=== PATIENT | male | born 1965 | race Caucasian/White ===

== ENCOUNTER 2018-12-01 06:01 | Inpatient (IN) ==
--- NOTE | 2018-10-23 09:44 | PAT Medication Instructions ---
Medication Instructions Date of Service October 23, 2018 Home Medications cholecalciferol (vitamin D3) 2,000 unit PO DAILY diltiazem HCl [Cardizem CD] 300 mg PO QAM levothyroxine 100 mcg PO QAM warfarin 6 mg PO QPM ASK your prescriber and surgeon warfarin 6 mg PO QPM DO NOT take the morning of surgery cholecalciferol (vitamin D3) 2,000 unit PO DAILY Take morning of surgery With a small sip of water, OTHERWISE NOTHING TO EAT OR DRINK AFTER MIDNIGHT: diltiazem HCl [Cardizem CD] 300 mg PO QAM levothyroxine 100 mcg PO QAM Other Notes If you have any questions please call us at [phone] or [phone] or [phone] or [phone]
--- NOTE | 2018-10-23 09:59 | History & Physical Report ---
Date of Service October 23, 2018 History of Present Illness Primary Care Provider: NO PCP Allergies Allergy/AdvReac Type Severity Reaction Status Date / Time Tetanus Vaccines and Toxoid Allergy Unknown PT UNSURE, Verified 10/12/18 09:44 REACTION WAS A CHILD erythromycin base AdvReac Unknown Diarrhea, Verified 10/23/18 09:45 sweating Penicillins AdvReac Unknown Diarrhea Verified 10/12/18 09:44 ZPACK Allergy Unknown Diarrhea, Uncoded 10/23/18 09:45 sweating Home Medications Home Medications Medication Instructions Recorded Confirmed Type cholecalciferol (vitamin D3) 2,000 unit PO DAILY 10/12/18 10/12/18 History [Vitamin D3] diltiazem HCl [Cardizem CD] 300 mg PO QAM 10/12/18 10/12/18 History levothyroxine 100 mcg PO QAM 10/12/18 10/12/18 History warfarin 6 mg PO QPM 10/12/18 10/12/18 History Past Med/Surg History Medical History Chronic back pain History of DVT (deep vein thrombosis) X4 - MOST RECENT 2013 History of anesthesia reaction WHEN STARTS GOING UNDER, THINKS BEING ATTACKED...GETS VIOLENT History of kidney stones History of melanoma History of neurologic disorder "IDIOPATHIC PSEUDOTUMOR OF THE BRAIN" - NO PROBLEMS WITH SINCE 2008 History of sepsis S/P BACK SURGERY - [facility] Hypertension Sleep apnea COULDN'T TOLERATE CPAP Thyroid disease "SLOW" Surgical History History of arthroscopy of right knee History of back surgery L4 - "TOOK DISC OUT AND PUT ONE IN" History of ear surgery LEFT X 2 History of hand surgery L WRIST History of laparoscopic adjustable gastric banding History of melanoma excision History of right knee surgery "MODIFIED WALTER" Family History Father No problems noted. Other Family history of cancer in father Social History Preferred Language: Icelandic Communication Ability: Effective Optical Effects Line Up Person Required: No Beliefs That Will Affect Care: Yazidi Current Living Situation: Spouse Other Information That Helps Us Care for You: No Feels Safe at Home: Yes Smoking Status: Never smoker Hx Alcohol Use: No Hx Substance Use: No
--- NOTE | 2018-10-23 11:53 | Anesthesiology Consultation ---
Date of Service October 23, 2018 Assessment & Plan (1) Encounter for pre-operative examination: - PCP: 11/10/18: "at low risk for bert-operative complications and has no contraindication to surgery." - Hx idiopathic intracranial hypertension (noted per patient/PCP note). Prior issues related to this were severe migraines/vertigo which has not been an issue in 10+ years s/p 150# weight loss s/p lap band. Has not seen neurology in several years. Patient states he had lumbar surgery in 2013 at [facility] without issue. Patient was advised anesthesia recommendation to see neurology prior to surgery given hx idiopathic intracranial hypertension to ensure whether or not spinal anesthesia okay from their perspective. Patient refused further neuro evaluation prior to surgery. Discussed with Dr. Cruz/Dr. Nazario. He wishes to proceed with surgery as scheduled with understanding that surgery may be done under [place] depending on AM DOS anesthesiologist evaluation/decision. - Check coags AM DOS (warfarin instructions per surgeon/prescriber). Chart Review Chart Review: Acceptable Risk for Surgery and Patient seen in Pre Admission Testing Teaching & Discussion Pre-Anesthesia Teaching/Discussion Notes: Instructed NPO after midnight before surgery,except medications with 15 cc of water. Medication instructions provided according to the PAT guidelines. History Surgery Operation Date: 12/01/18 08:35 Proposed Procedures p Right Total Knee Arthroplasty - Sam Lopez DO Height/Weight Height: 5 ft 7 in Weight: 125.6 kg Allergies Allergy/AdvReac Type Severity Reaction Status Date / Time Tetanus Vaccines and Toxoid Allergy Unknown PT UNSURE, Verified 10/12/18 09:44 REACTION WAS A CHILD erythromycin base AdvReac Unknown Diarrhea, Verified 10/23/18 09:45 sweating Penicillins AdvReac Unknown Diarrhea Verified 10/12/18 09:44 ZPACK Allergy Unknown Diarrhea, Uncoded 10/23/18 09:45 sweating Medications Home Medications Medication Instructions Recorded Confirmed Last Taken cholecalciferol (vitamin D3) 2,000 unit PO DAILY 10/12/18 10/12/18 Unknown [Vitamin D3] diltiazem HCl [Cardizem CD] 300 mg PO QAM 10/12/18 10/12/18 10/12/18 levothyroxine 100 mcg PO QAM 10/12/18 10/12/18 10/12/18 warfarin 6 mg PO QPM 10/12/18 10/12/18 10/11/18 Past Medical History Medical History Chronic back pain History of DVT (deep vein thrombosis) X4 - MOST RECENT 2013; ON WARFARIN History of kidney stones History of melanoma S/P EXCISION Hypertension Hypothyroidism Idiopathic intracranial hypertension ASYMPTOMATIC SINCE 2008 S/P WEIGHT LOSS Morbid obesity Sleep apnea NO DEVICE; "COULD NOT TOLERATE" CPAP Past Family History Family History Father No problems noted. Other Family history of cancer in father Past Surgical History Surgical History History of arthroscopy of right knee History of back surgery LUMBAR History of ear surgery LEFT X2 History of hand surgery LEFT WRIST History of laparoscopic adjustable gastric banding 2007 S/P 150# WEIGHT LOSS History of melanoma excision History of right knee surgery MODIFIED KRISTIAN PROCEDURE Past Anesthesia History No Family Hx of Anesthesia Complications and Other Hx post-op sepsis s/p lumbar surgery (2013). Violent/emotional with anesthesia initiation per patient* History of PONV No Motion Sickness Screening History of Motion Sickness: No Social History Smoking Status: Never smoker Do You Dip or Chew Tobacco: No Hx Alcohol Use: No Hx Substance Use: No substance use type: does not use Exercise / Class Metabolic Activity II 4-5 Yardwork/Stairs/Walk up hill Review of Systems Patient denies chest pain, shortness of breath, dyspnea on exertion, cough, wheezing, palpitations. Physical Exam Vital Signs VITALS BP 137/91 P 76 TEMP 98.2 SP02 95%RA RESP 18 PHYSICAL Full neck and c-spine range of motion. Full TMJ range of motion. TMD 3 finger breaths Mallampati Score 1 Dentition: upper front mild chipped teeth Lungs: clear throughout to auscultation Cardiac: regular rate and rhythm, no murmurs noted Spine: normal Carotid arteries: negative bruit Extremities: no edema Trimmed espana Testing Electrocardiogram Date: 10/23/18 NSR at 70bpm. Rightward axis. Chest X-Ray Date: 10/23/18 Findings: + NAD Evidence for prior gastric lap band. Laboratory Results 10/23/18 12:21 10/23/18 12:21 Blood Type A Negative 04/05/19 12:21 Antibody Screen NEGATIVE 10/23/18 12:21 PT 25.2 Seconds (9.0-12.0) H 10/23/18 12:21 INR 2.6 (0.9-1.1) H 10/23/18 12:21 APTT 39.1 Seconds (21.0-31.0) H 10/23/18 12:21 Hemoglobin A1c 5.7 % (4.5-5.6) H 10/23/18 12:21 Urine Color Yellow 10/23/18 12:21 Urine Appearance Clear (Clear) 10/23/18 12:21 Urine pH 6.0 (4.5-7.5) 10/23/18 12:21 Ur Specific [place] 1.014 (1.000-1.030) 10/23/18 12:21 Urine Protein Negative (Negative) 10/23/18 12:21 Urine Glucose (UA) Negative (Negative) 10/23/18 12:21 Urine Ketones Negative (Negative) 10/23/18 12:21 Urine Nitrite Negative (Negative) 10/23/18 12:21 Ur Leukocyte Esterase Negative (Negative) 10/23/18 12:21 Urine WBC (Auto) 0 /hpf (0-5) 10/23/18 12:21 Urine RBC (Auto) 0-4 /hpf (0-4) 10/23/18 12:21 U Hyaline Cast (Auto) 0 /lpf (0-5) 10/23/18 12:21 U Epithel Cells (Auto) 0-5 /lpf (0-5) 10/23/18 12:21 Urine Bacteria (Auto) Negative (Negative) 10/23/18 12:21 10/23/18 12:21 Urine Culture - Final Urine,Clean Catch No growth - less than 1,000 colonies/mL.
--- NOTE | 2018-10-23 13:09 | XRay Report ---
XR chest Pre-admission PA/Lat HISTORY: Preop. COMPARISON: None. FINDINGS: The lungs are clear. The heart is normal in size. No pleural effusions. No pneumothorax. Ev idence for prior gastric lap band. This appears to be in good position. IMPRESSION: No acute process. Electronically signed by: Lowell Gaytan M.D. 10/23/2018 1:08 PM
[2018-10-23 13:19] LABS: Basophils # (auto) 0.03 K/uL (0-0.2); Basophils % (auto) 0.5 %; Eosinophils # (auto) 0.09 K/uL (0-0.5); Eosinophils % (auto) 1.5 %; Hematocrit (blood only) 46.8 % (42-52); Hemoglobin 16.7 g/dL (14.0-18.0); Immature Granulocytes # (auto) 0.02 K/uL (0.00-0.02); Immature Granulocytes % (auto) 0.3 %; Lymphocytes # (auto) 0.98 K/uL (1.2-3.4); Lymphocytes % (auto) 16.4 %; Mean Corpuscular Hgb Conc 35.7 g/dL (32-36); Mean Corpuscular Volume 81.8 fL (80-100); Mean Platelet Volume 10.1 fL (7.4-10.4); Monocytes # (auto) 0.94 K/uL (0.11-0.59); Monocytes % (auto) 15.7 %; Neutrophils # (auto) 3.92 K/uL (1.4-6.5); Neutrophils % (auto) 65.6 %; Platelet Count 173 K/uL (130-400); RDW Coefficient of Variation 14.3 % (11.5-14.5); RDW Standard Deviation 42.2 fL (36.4-46.3); Red Blood Count 5.72 M/uL (4.7-6.1); White Blood Count 5.98 K/uL (4.8-10.8)
[2018-10-23 13:26] LABS: Appearance Urine Clear (Clear); Bacteria Urine Automated Negative (Negative); Bilirubin Urine Negative (Negative); Blood Urine Trace (Negative); Cast Urine Automated 0 /lpf (0-5); Color Urine Yellow; Epithelial Cell Urine Auto 0-5 /lpf (0-5); Glucose Urine UA Negative (Negative); Ketones Urine Negative (Negative); Leukocyte Esterase Urine Negative (Negative); Nitrite Urine Negative (Negative); Protein Urine Negative (Negative); RBC Urine Automated 0-4 /hpf (0-4); Specific Gravity Urine 1.014 (1.000-1.030); Urobilinogen Urine Negative (Negative); WBC Urine Automated 0 /hpf (0-5)
[2018-10-23 13:29] LABS: BUN Creatinine Ratio 18.4 (10-20); Calcium 9.1 mg/dl (8.5-10.1); Creatinine Clr Calc Pharmacy 132.3 ml/min; Est GFR (African American) 117.5; Est GFR (Non-African American) 101.4; Potassium 4.1 mmol/L (3.5-5.1)
[2018-10-23 13:34] LABS: INR 2.6 (0.9-1.1); Partial Thromboplastin Ratio 1.4; Partial Thromboplastin Time 39.1 Seconds (21.0-31.0); Prothrombin Time 25.2 Seconds (9.0-12.0)
[2018-10-23 13:44] LABS: Estimated Average Glucose 117 mg/dl; Hemoglobin A1C 5.7 % (4.5-5.6)
--- NOTE | 2018-11-02 07:59 | History & Physical Report ---
Date of Service November 02, 2018 Date of Surgery: 12-01-18 Assessment & Plan (1) Tricompartment osteoarthritis of right knee: Risks and benefits of procedure discussed in detail today, patient would like to proceed with a Right total knee replacement at [facility] as scheduled on 12-01-18. will obtain medical clearance prior to surgery, as well as obtain PATs at [facility]. will resume his Coumadin post op and bridge with lovenox. f/u 2 weeks post op for routine post-operative care and x-ray, sooner if having any problems. will make arrangements for HHPT at the time of discharge. At this point in time, has failed conservative measures and would like to proceed with surgical intervention. History of Present Illness Chief Complaint: Right knee pain Primary Care Provider: NO PCP Mr Shameka Gregg is a 53 year old male who is here for a follow up of right knee pain, presents for pre-op evaluation prior to a right total knee replacement. He presents with pain, crepitus, instability and weakness on the right side. He is scheduled at [facility] for Right TKA on 12/01/18. He states that the symptoms have been chronic non-traumatic. The symptoms occur constantly with intermittent worsening. Currently the patient states that the symptoms are moderate-severe. The pain is described as aching, sharp and throbbing. The symptoms occur cont inuously. He rates his current pain as 7/10. The symptoms are aggravated by daily activities, first steps while awake, walking and repetitive activities. Lino states that the symptoms are relieved by no specific activity. In addition to right knee pain the patient is also experiencing decreased mobility, difficulty going to sleep, nighttime awakening, pain after activity, stiffness, weakness and limping. Patient is taking Coumadin 6mg daily due to h/o DVT's. He sees a registered appraiser for this. He is scheduled for clearance with PCP and registered appraiser. Allergies Allergy/AdvReac Type Severity Reaction Status Date / Time Tetanus Vaccines and Toxoid Allergy Unknown PT UNSURE, Verified 10/12/18 09:44 REACTION WAS A CHILD erythromycin base AdvReac Unknown Diarrhea, Verified 10/23/18 09:45 sweating Penicillins AdvReac Unknown Diarrhea Verified 10/12/18 09:44 ZPACK Allergy Unknown Diarrhea, Uncoded 10/23/18 09:45 sweating Home Medications Home Medications Medication Instructions Recorded Confirmed Type cholecalciferol (vitamin D3) 2,000 unit PO DAILY 10/12/18 10/12/18 History [Vitamin D3] diltiazem HCl [Cardizem CD] 300 mg PO QAM 10/12/18 10/12/18 History levothyroxine 100 mcg PO QAM 10/12/18 10/12/18 History warfarin 6 mg PO QPM 10/12/18 10/12/18 History Past Med/Surg History Medical History Chronic back pain History of DVT (deep vein thrombosis) X4 - MOST RECENT 2013; ON WARFARIN History of kidney stones History of melanoma S/P EXCISION History of neurologic disorder "IDIOPATHIC PSEUDOTUMOR OF THE BRAIN"- NO ISSUES SINCE 2008 Hypertension Hypothyroidism Morbid obesity Sleep apnea NO DEVICE; "COULD NOT TOLERATE" CPAP Surgical History History of arthroscopy of right knee History of back surgery LUMBAR History of ear surgery LEFT X2 History of hand surgery LEFT WRIST History of laparoscopic adjustable gastric banding 2008 S/P 150# WEIGHT LOSS History of melanoma excision History of right knee surgery MODIFIED KRISTIAN PROCEDURE Family History Father No problems noted. Other Family history of cancer in father Social History Preferred Language: Nigerian Communication Ability: Effective User Experience Architect Required: No Beliefs That Will Affect Care: Anabaptist Current Living Situation: Spouse Other Information That Helps Us Care for You: No Feels Safe at Home: Yes Smoking Status: Never smoker Hx Alcohol Use: No Hx Substance Use: No Review of Systems All systems reviewed & are unremarkable except as noted in HPI & below Constitutional: no fever, no chills and no sweats Respiratory: no cough, no dyspnea and no dyspnea on exertion Cardiovascular: no chest pain, no dyspnea and no orthopnea Gastrointestinal: no abdominal pain, no nausea and no vomiting Musculoskeletal: as per Subjective / HPI Integumentary: no rash and no lesions Physical Exam Vital Signs (Past 24 Hours): Ht: 5ft 7in Wt: 125.6kg BP: 130/88 Pulse: 84 Constitutional: WD/WN, vitals as above no acute distress Respiratory: normal respiratory effort, lungs clear to auscultation no respiratory distress, no labored breathing and does not use accessory muscles Cardiovascular: RRR, no murmur, no edema Gastrointestinal (Abdomen): normal bowel sounds, soft, nontender, no hepatosplenomegaly Musculoskeletal: Right Knee Exam: Lino ambulates with a limp, overall neutral alignment, no atrophy or ecchymosis no erythema, mild effusion, diffuse tenderness to the knee greatest over medial compartment, negative patellar apprehension , mild crepitation with motion, Patella position neutral, neida's negative, Posterior drawer- negative, anterior drawer negative, valgus stress negative, varus stress negative, no extensor lag, pain with active range of motion, less pain with passive painful ROM, Range of motion 0/3/110. No pain with active/passive ROM of ankle. Lower extremity strength normal. Lower extremity neuro-vascular is normal Skin: no rashes, warm and dry Results & Data Laboratory Results Laboratory Results WBC 5.98 K/uL (4.8-10.8) 10/23/18 12:21 RBC 5.72 M/uL (4.7-6.1) 10/23/18 12:21 Hgb 16.7 g/dL (14.0-18.0) 10/23/18 12:21 Hct 46.8 % (42-52) 10/23/18 12:21 MCV 81.8 fL (80-100) 10/23/18 12:21 MCH 29.2 pg (25-34) 10/23/18 12:21 MCHC 35.7 g/dL (32-36) 10/23/18 12:21 RDW Std Deviation 42.2 fL (36.4-46.3) 10/23/18 12:21 RDW Coeff of Eduardo 14.3 % (11.5-14.5) 10/23/18 12:21 Plt Count 173 K/uL (130-400) 10/23/18 12:21 MPV 10.1 fL (7.4-10.4) 10/23/18 12:21 Immature Gran % (Auto) 0.3 % 10/23/18 12:21 Neut % (Auto) 65.6 % 10/23/18 12:21 Lymph % (Auto) 16.4 % 10/23/18 12:21 [place] % (Auto) 15.7 % 10/23/18 12:21 Eos % (Auto) 1.5 % 10/23/18 12:21 Baso % (Auto) 0.5 % 10/23/18 12:21 Immature Gran # (Auto) 0.02 K/uL (0.00-0.02) 10/23/18 12:21 Neut # (Auto) 3.92 K/uL (1.4-6.5) 10/23/18 12:21 Lymph # (Auto) 0.98 K/uL (1.2-3.4) L 10/23/18 12:21 [place] # (Auto) 0.94 K/uL (0.11-0.59) H 10/23/18 12:21 Eos # (Auto) 0.09 K/uL (0-0.5) 10/23/18 12:21 Baso # (Auto) 0.03 K/uL (0-0.2) 10/23/18 12:21 PT 25.2 Seconds (9.0-12.0) H 10/23/18 12:21 INR 2.6 (0.9-1.1) H 10/23/18 12:21 APTT 39.1 Seconds (21.0-31.0) H 10/23/18 12:21 PTT Ratio 1.4 10/23/18 12:21 Sodium 142 mmol/L (136-145) 10/23/18 12:21 Potassium 4.1 mmol/L (3.5-5.1) 10/23/18 12:21 Chloride 107 mmol/L (98-107) 10/23/18 12:21 Carbon Dioxide 31 mmol/L (21-32) 10/23/18 12:21 Anion Gap 3.0 (3-11) 10/23/18 12:21 BUN 16 mg/dl (7-18) 10/23/18 12:21 Creatinine 0.84 mg/dl (0.6-1.4) 10/23/18 12:21 Est Cr Clr Drug Dosing 132.3 ml/min 10/23/18 12:21 Est GFR ( Amer) 117.5 10/23/18 12:21 Est GFR (Non-Af Amer) 101.4 10/23/18 12:21 BUN/Creatinine Ratio 18.4 (10-20) 10/23/18 12:21 Glucose 93 mg/dl (70-99) 10/23/18 12:21 Estimat Average Glucose 117 mg/dl 10/23/18 12:21 Hemoglobin A1c 5.7 % (4.5-5.6) H 10/23/18 12:21 Calcium 9.1 mg/dl (8.5-10.1) 10/23/18 12:21 Albumin 4.0 gm/dl (3.4-5.0) 10/23/18 12:21 Urine Color Yellow 10/23/18 12:21 Urine Appearance Clear (Clear) 10/23/18 12:21 Urine pH 6.0 (4.5-7.5) 10/23/18 12:21 Ur Specific [place] 1.014 (1.000-1.030) 10/23/18 12:21 Urine Protein Negative (Negative) 10/23/18 12:21 Urine Glucose (UA) Negative (Negative) 10/23/18 12:21 Urine Ketones Negative (Negative) 10/23/18 12:21 Urine Blood Trace (Negative) H 10/23/18 12:21 Urine Nitrite Negative (Negative) 10/23/18 12:21 Urine Bilirubin Negative (Negative) 10/23/18 12:21 Urine Urobilinogen Negative (Negative) 10/23/18 12:21 Ur Leukocyte Esterase Negative (Negative) 10/23/18 12:21 Urine WBC (Auto) 0 /hpf (0-5) 10/23/18 12:21 Urine RBC (Auto) 0-4 /hpf (0-4) 10/23/18 12:21 U Hyaline Cast (Auto) 0 /lpf (0-5) 10/23/18 12:21 U Epithel Cells (Auto) 0-5 /lpf (0-5) 10/23/18 12:21 Urine Bacteria (Auto) Negative (Negative) 10/23/18 12:21 Blood Type A Negative 10/23/18 12:21 Antibody Screen NEGATIVE 10/23/18 12:21 Diagnostic Findings Right knee x-ray on 08/17/18 showing advanced degenerative changes to the right knee, narrowing of the medial compartment and patello-femoral joint with patellar spurring noted, there is osteophyte formation and subchondral sclerosis noted. overall varus alignment. no acute bony pathology noted, no loose bodies.
[~2018-12-01 06:01] MED LIST: ACETAMINOPHEN 500 MG TAB PO SCH; CLINDAMYCIN 600 MG/54 ML BAG IV SCH; CeleBREX 200 MG CAP PO SCH; FAMOTIDINE 20 MG TAB PO SCH; GABAPENTIN 300 MG x 3 PO SCH; LR 500ML BOLUS, THEN 15ML/HR IV SCH; ROPIVACAINE 0.5% HCL/PF 150 MG, BUPIVACAINE 0.5% MPF 30 ML, EPINEPHrine 30MG/30ML (OR U... INFIL SCH; TRANEXAMIC ACID 1,000 MG **IV Pre-op IV SCH; dexAMETHasone 4 MG TAB PO SCH
[2018-12-01] MEDS ORDERED: BUPIVACAINE/EPINEPHRINE 0.5% MPF 1:200,000 30 ML VIAL ONE (06:28)
[2018-12-01] MEDS ORDERED: BUPIVACAINE 0.5 % 5 MG/1 ML PF 10ML VIAL ONE (06:28)
[2018-12-01] MEDS ORDERED: DEXAMETHASONE SOD INJ 4 MG/ML VIAL ONE ×2 (06:28→07:41)
[2018-12-01] MEDS ORDERED: TRANEXAMIC ACID 1,000 MG **IV Intra-op IV SCH (06:30)
[2018-12-01 06:45] LABS: INR 1.1 (0.9-1.1); Partial Thromboplastin Ratio 1.1; Partial Thromboplastin Time 30.2 Seconds (21.0-31.0); Prothrombin Time 11.4 Seconds (9.0-12.0)
[2018-12-01] MEDS ORDERED: LIDOCAINE HCL 2% 2 ML VIAL/AMP(20MG/ML) INFIL ONE ×2 (07:03→07:41)
[2018-12-01] MEDS ORDERED: PROPOFOL IV EMULSION 10 MG/ML 20 ML VIAL IV ONE ×3 (07:03→09:23)
[2018-12-01] MEDS ORDERED: MIDAZOLAM HCL 1 MG/ML 2ML VIAL ONE ×3 (07:03→08:34)
--- NOTE | 2018-12-01 07:13 | History & Physical Bridge Note ---
Date of Service December 01, 2018 History & Physical Bridge Note I have examined the patient, reviewed the History & Physical and in the interval since the performance of the History & Physical I have noted the following changes of clinical significance: no changes noted
[2018-12-01] MEDS ORDERED: NEOSTIGMINE METHYLSULFATE 5 MG/5 ML SYR ONE (07:41)
[2018-12-01] MEDS ORDERED: GLYCOPYRROLATE 0.2 MG/ML VIAL ONE (07:41)
[2018-12-01] MEDS ORDERED: ONDANSETRON INJ 2 MG/ML 2 ML VIAL ONE (07:41)
[2018-12-01] MEDS ORDERED: fentaNYL citrate 100 MCG/2 ML VIAL ONE (07:41)
[2018-12-01] MEDS ORDERED: POVIDONE-IODINE OP SOLN 30 ML BTL ONE (07:42)
[2018-12-01] MEDS ORDERED: ORTHO JOINT ANESTHETIC ONE (07:42)
[2018-12-01] MEDS ORDERED: BACITRACIN INJ 50,000 UNIT VIAL ONE (07:43)
[2018-12-01] MEDS ORDERED: fentaNYL citrate 100 MCG/2 ML VIAL IV PRN (08:24)
[2018-12-01] MEDS ORDERED: ONDANSETRON INJ 2 MG/ML 2 ML VIAL IV PRN ×2 (08:24→11:14)
[2018-12-01] MEDS ORDERED: ePHEDrine sulfate 50 MG/ML AMP IV PRN (08:24)
[2018-12-01] MEDS ORDERED: ATROPINE SULFATE 0.1 MG/ML 10ML SYR IV PRN (08:24)
[2018-12-01] MEDS ORDERED: PHENYLEPHRINE 100MCG/ML 5ML SYR ONE (08:56)
[2018-12-01] MEDS ORDERED: PHENYLEPHRINE HCL 10 MG/ML VIAL ONE (08:56)
[2018-12-01] MEDS ORDERED: ePHEDrine sulfate 50 MG/ML SYR ONE (08:56)
--- NOTE | 2018-12-01 09:24 | Operative Report ---
Post Operative Report Pre & Post Diagnosis Operation Date: 12/01/18 08:35 Pre-Op Diagnosis: Right Knee Osteoarthritis Post-Op Diagnosis: Right Knee Osteoarthritis Procedure Operation Date: 12/01/18 08:35 Actual Procedures p Right Total Knee Arthroplasty(Rigght total knee arthroplasty utilizing [employer] journey to with block total knee arthroplasty size 7 femur 6 tibia 13 polyethylene 32 oval patella Sam Lopez DO Surgeon Sam Lopez DO Cnc Mechanic Lobito GONZALEZ Estimated Blood Loss 5 Findings Consistent with Post-Op Diagnosis Patient presents with severe end-stage DJD right knee is been no response to conservative management patient's intraoperative findings included the bone to bone changes eburnated bone subchondral cystic changes marginal osteophytes moderate to large effusion varus alignment with a eburnated [id number] tricompartmentally. Specimens Bone and cartilage Drains Medium bore Hemovac Complications none Disposition Accompanied Patient To Recovery: No Disposition: Recovery Room Indications Patient presents for right total knee arthroplasty for failed attempted conservative management the above intraoperative findings were noted patient failed attempts at conservative management including physical therapy anti- inflammatories bracing relative rest activity modification corticosteroid injections Visco supplementation presents for right total knee arthroplasty Description of Procedure After proper prepping and draping of the Right lower extremity anterior midline incision was made over the region of the extensor extensor mechanism after meticulous hemostasis was obtained and maintained in subcutaneous tissues a medial parapatellar incision was made The patella was subluxed lateralward the medial lateral gutter were cleaned from any hypertrophic synovitis and scar tissue of the distal femoral block was placed and the distal femoral osteotomy cut was made subsequently the chamfers anterior and posterior osteotomy cuts were made utilizing the 4-in-1 block the tibia was subsequently subluxed anteriorward medial and ateral meniscal remnants were excised in their entirety remnants of the anterior and posterior cruciate ligaments were excised in their entirety excellent exposure of the proximal tibia was obtained the tibial osteotomy guide was placed on the proximal tibial osteotomy cut was made once again the knee was irrigated with copious amounts of sterile saline solution the patella was subsequently everted lateralward thickened scar tissue around the patella was removed the patella was subsequently cut utilizing a freehand technique and was drilled prepared for final preparation and placement of patella socially flexion-extension gaps were checked and the equal and symmetric trials were placed to the appropriate femoral and tibial trials with poly-spacer being placed for equal flexion and extension gaps and full range of motion including extension to 0 and flexion to 140 the trial components after having been taken to recovery range of motion was subsequently removed meticulous hemostasis was obtained and maintained subsequently a knee block injection of joint cocktail including ropivacaine 0.5% 150 mg. Bupivacaine 0.5% epinephrine 1-200,030 mL's toradol 30 mg dexamethasone 4 mg ketamine 10 mg clonidine 100 micrograms normal saline solution 30 mg was infiltrated into the soft tissues of the posterior knee medial lateral gutters and periosteal synovium special attention was paid to protect neurovascular structures at all times subsequently trial components having been removed the knee was irrigated with sterile saline solution. debris was removed the proximal tibia was subsequently prepared and was made ready for the placement of the tibial component tibial component was also cemented and tamped into position the femoral component was subsequently placed and cemented in the position the patellar component was subsequently cemented in position because hemostasis once again obtained and maintained wound having been thoroughly irrigated with debridement and debridement lavage was performed as well as a medial parapatellar incision closed with #1 Vicryl in interrupted fashion subcutaneous was closed with #2 Vicryl skin was closed with skin clips. PA-C was necessary for prepping and drapping as well as wound closure of deep fascia Sub cutaneous tissue and skin and was necessary for the case. A sterile compressive dressing was placed patient was taken to recovery in stable condition of report dictated by John I attest to the content of the Intraoperative Record and any orders documented therein. Any exceptions are noted below. I attest to the content of the Intraoperative Record and any orders documented therein. Any exceptions are noted below.
--- NOTE | 2018-12-01 10:31 | XRay Report ---
RIGHT KNEE 2 VIEWS History: Right total knee arthroplasty. Degenerative arthritis. Postop. FINDINGS: The patient is status post a right total knee arthroplasty. The hardware is intact. No frac ture or dislocation. Skin elinor and surgical drains are in place. IMPRESSION: Right total knee arthroplasty. No evidence for hardware complication. Electronically signed by: Lowell Gaytan M.D. 12/01/2018 10:30 AM
--- NOTE | 2018-12-01 10:34 | Anesthesiology Progress Note ---
Date of Service December 01, 2018 Anesthesia Post Procedure Vital Signs Vital Signs: Temp Pulse Pulse Resp BP Pulse Ox 12/01/18 10:30 36.3 C L 72 16 122/72 94 12/01/18 10:20 75 16 114/81 94 12/01/18 10:10 70 16 116/78 95 12/01/18 10:04 36.2 C L 80 18 117/73 94 12/01/18 07:06 37 C 78 20 158/96 H 94 Pain Intensity Right Knee: Pain Intensity: 5 Right Lower Medial Back: Pain Intensity: 8 Transfer of Care Handoff Completed per policy Notes Mental Status: alert / awake / arousable Patient Amnestic to Procedure: Yes Nausea / Vomiting: adequately controlled Pain: adequately controlled Airway Patency, RR, SpO2: stable & adequate BP & HR: stable & adequate Hydration State: stable & adequate Neuraxial Anesthesia: was administered and sensory block is resolving Anesthetic Complications: no major complications apparent and Pt Satisfied with anesthetic care
[2018-12-01] MEDS ORDERED: SODIUM CHLORIDE 0.9% 1000ML 1,000 ML IV SCH (11:14)
[2018-12-01] MEDS ORDERED: NALOXONE HCL 0.4 MG/1 ML VIAL/CARP IV PRN (11:14)
[2018-12-01] MEDS ORDERED: BISACODYL 10 MG SUPP PR PRN (11:14)
[2018-12-01] MEDS ORDERED: MAGNESIUM HYDROXIDE SUSP 30 ML UDC PO PRN (11:14)
[2018-12-01] MEDS: ACETAMINOPHEN 500 MG TAB PO SCH ×2 (14:01→21:13)
[2018-12-01] MEDS: WARFARIN SOD 6 MG TAB PO SCH (15:14)
[2018-12-01] MEDS: CLINDAMYCIN 600 MG in DEXTROSE 5% 50 ML IV SCH (15:15)
[2018-12-01] MEDS: OXYCODONE HCL IR 5 MG TAB (IMMEDIATE RELEASE) PO PRN ×2 (16:50→21:13)
[2018-12-01] MEDS: FERROUS GLUCONATE 324 MG TAB PO SCH (17:51)
[2018-12-01] MEDS: HYDROmorphone INJ 0.5 MG/0.5 ML SYR IV PRN (19:25)
[2018-12-01] MEDS: DOCUSATE SODIUM 100 MG CAP PO SCH (21:12)
[2018-12-01] MEDS: SENNA 8.6 MG TAB PO SCH (21:12)
[2018-12-02] MEDS: CLINDAMYCIN 600 MG in DEXTROSE 5% 50 ML IV SCH (00:02)
[2018-12-02] MEDS: HYDROmorphone INJ 0.5 MG/0.5 ML SYR IV PRN ×2 (00:06→12:21)
[2018-12-02 05:45] LABS: Hematocrit (blood only) 39.8 % (42-52); Hemoglobin 13.6 g/dL (14.0-18.0); Mean Corpuscular Hgb Conc 34.2 g/dL (32-36); Mean Corpuscular Volume 83.4 fL (80-100); Mean Platelet Volume 9.5 fL (7.4-10.4); Platelet Count 250 K/uL (130-400); RDW Standard Deviation 46.1 fL (36.4-46.3); Red Blood Count 4.77 M/uL (4.7-6.1); White Blood Count 16.85 K/uL (4.8-10.8)
[2018-12-02 05:55] LABS: INR 1.1 (0.9-1.1); Prothrombin Time 11.6 Seconds (9.0-12.0)
[2018-12-02 06:15] LABS: BUN Creatinine Ratio 21.3 (10-20); Calcium 8.7 mg/dl (8.5-10.1); Creatinine Clr Calc Pharmacy 114.1 ml/min; Est GFR (African American) 105.6; Est GFR (Non-African American) 91.2; Potassium 4.2 mmol/L (3.5-5.1)
[2018-12-02] MEDS: ACETAMINOPHEN 500 MG TAB PO SCH ×3 (06:16→21:13)
[2018-12-02] MEDS: LEVOTHYROXINE SODIUM 100 MCG TABLET PO SCH (06:16)
[2018-12-02] MEDS: DOCUSATE SODIUM 100 MG CAP PO SCH ×2 (07:30→21:13)
[2018-12-02] MEDS: MULTIVITAMIN TAB PO SCH (07:30)
[2018-12-02] MEDS: FERROUS GLUCONATE 324 MG TAB PO SCH ×2 (07:30→17:35)
[2018-12-02] MEDS: ENOXAPARIN INJ 120 MG/0.8 ML SYR SQ SCH ×2 (07:30→21:13)
[2018-12-02] MEDS: dilTIAZem HCL 300 MG CAPCR PO SCH (07:30)
[2018-12-02] MEDS: OXYCODONE HCL IR 5 MG TAB (IMMEDIATE RELEASE) PO PRN ×4 (07:30→20:02)
--- NOTE | 2018-12-02 08:05 | Anesthesiology Progress Note ---
Date of Service December 02, 2018 Anesthesia Post Procedure Vital Signs Vital Signs: Temp Pulse Pulse Pulse Resp BP Pulse Ox 12/02/18 03:05 36.6 C 77 18 112/75 92 12/01/18 22:55 36.7 C 80 16 111/68 97 12/01/18 19:33 36.7 C 96 H 16 138/83 92 12/01/18 16:27 36.8 C 18 132/77 97 12/01/18 14:15 36.7 C 96 H 18 121/74 90 12/01/18 13:03 37.8 C H 88 16 117/68 2 L 12/01/18 12:13 36.7 C 18 109/76 93 12/01/18 11:29 36.6 C 80 16 125/80 94 12/01/18 11:14 36.8 C 80 16 116/71 92 12/01/18 10:50 85 16 121/77 97 12/01/18 10:40 74 16 112/70 97 12/01/18 10:30 36.3 C L 72 16 122/72 94 12/01/18 10:20 75 16 114/81 94 12/01/18 10:10 70 16 116/78 95 12/01/18 10:04 36.2 C L 80 18 117/73 94 Pain Intensity Right Knee: Pain Intensity: 4 Right Lower Medial Back: Pain Intensity: 8 Notes Mental Status: alert / awake / arousable and participated in evaluation Patient Amnestic to Procedure: Yes Nausea / Vomiting: adequately controlled Pain: adequately controlled Airway Patency, RR, SpO2: stable & adequate BP & HR: stable & adequate Hydration State: stable & adequate Neuraxial Anesthesia: was administered and sensory block resolved Anesthetic Complications: no major complications apparent
--- NOTE | 2018-12-02 08:15 | Orthopedic Progress Note ---
Date of Service December 02, 2018 Assessment & Plan (1) Tricompartment osteoarthritis of right knee: Postop day 1 status post right total knee arthroplasty. H/O hypercoaguable state on chronic Coumadin Begin PT and OT protocols. Weightbearing as tolerated. DVT prophylaxis with SCDs, ANTONIA hose, Coumadin which has been restarted, and bridging with enoxaparin. Pain management with acetaminophen, oxycodone, hydromorphone. Discharge planning-patient is planning for home health services upon discharge. Subjective Postop day 1 status post right total knee arthroplasty. Patient is currently sitting up in his chair at the bedside. He states that the only time he has pain is whenever he does a series of straight leg raises. Most of the pain is over the patella and quadriceps tendon. He states he was able to ambulate around the hallways without difficulty. He denies shortness of breath, chest pain, lightheadedness. Physical Exam Physical Exam: Dressings are clean, dry, and intact. Calves are soft nontender. Neurovascular is intact. Toes are mobile. Hemovac drainage has slowed down to 10 mL's. Results & Data Vital Signs (Past 12 Hours) Vital Signs Temp Pulse Pulse Resp BP Pulse Ox 12/02/18 03:05 36.6 C 77 18 112/75 92 12/01/18 22:55 36.7 C 80 16 111/68 97 Laboratory Results Laboratory Results WBC 16.85 K/uL (4.8-10.8) H 12/02/18 05:20 RBC 4.77 M/uL (4.7-6.1) 12/02/18 05:20 Hgb 13.6 g/dL (14.0-18.0) L 12/02/18 05:20 Hct 39.8 % (42-52) L 12/02/18 05:20 MCV 83.4 fL (80-100) 12/02/18 05:20 MCH 28.5 pg (25-34) 12/02/18 05:20 MCHC 34.2 g/dL (32-36) 12/02/18 05:20 RDW Std Deviation 46.1 fL (36.4-46.3) 12/02/18 05:20 RDW Coeff of Eduardo 15.0 % (11.5-14.5) H 12/02/18 05:20 Plt Count 250 K/uL (130-400) 12/02/18 05:20 MPV 9.5 fL (7.4-10.4) 12/02/18 05:20 Immature Gran % (Auto) 0.3 % 10/23/18 12:21 Neut % (Auto) 65.6 % 10/23/18 12:21 Lymph % (Auto) 16.4 % 10/23/18 12:21 [place] % (Auto) 15.7 % 10/23/18 12:21 Eos % (Auto) 1.5 % 10/23/18 12:21 Baso % (Auto) 0.5 % 10/23/18 12:21 Immature Gran # (Auto) 0.02 K/uL (0.00-0.02) 10/23/18 12:21 Neut # (Auto) 3.92 K/uL (1.4-6.5) 10/23/18 12:21 Lymph # (Auto) 0.98 K/uL (1.2-3.4) L 10/23/18 12:21 [place] # (Auto) 0.94 K/uL (0.11-0.59) H 10/23/18 12:21 Eos # (Auto) 0.09 K/uL (0-0.5) 10/23/18 12:21 Baso # (Auto) 0.03 K/uL (0-0.2) 10/23/18 12:21 PT 11.6 Seconds (9.0-12.0) 12/02/18 05:20 INR 1.1 (0.9-1.1) 12/02/18 05:20 APTT 30.2 Seconds (21.0-31.0) 12/01/18 06:23 PTT Ratio 1.1 12/01/18 06:23 Sodium 141 mmol/L (136-145) 12/02/18 05:20 Potassium 4.2 mmol/L (3.5-5.1) 12/02/18 05:20 Chloride 107 mmol/L (98-107) 12/02/18 05:20 Carbon Dioxide 28 mmol/L (21-32) 12/02/18 05:20 6.0 (3-11) 12/02/18 05:20 BUN 21 mg/dl (7-18) H 12/02/18 05:20 0.96 mg/dl (0.6-1.4) 12/02/18 05:20 Est Cr Clr Drug Dosing 114.1 ml/min 12/02/18 05:20 Est GFR ( Amer) 105.6 12/02/18 05:20 Est GFR (Non-Af Amer) 91.2 12/02/18 05:20 21.3 (10-20) H 12/02/18 05:20 Glucose 138 mg/dl (70-99) H 12/02/18 05:20 Estimat Average Glucose 117 mg/dl 10/23/18 12:21 5.7 % (4.5-5.6) H 10/23/18 12:21 Calcium 8.7 mg/dl (8.5-10.1) 12/02/18 05:20 4.0 gm/dl (3.4-5.0) 10/23/18 12:21 Yellow 10/23/18 12:21 Clear (Clear) 10/23/18 12:21 6.0 (4.5-7.5) 10/23/18 12:21 Ur Specific [place] 1.014 (1.000-1.030) 10/23/18 12:21 Negative (Negative) 10/23/18 12:21 Negative (Negative) 10/23/18 12:21 Negative (Negative) 10/23/18 12:21 Trace (Negative) H 10/23/18 12:21 Negative (Negative) 10/23/18 12:21 Negative (Negative) 10/23/18 12:21 Negative (Negative) 10/23/18 12:21 Ur Leukocyte Esterase Negative (Negative) 10/23/18 12:21 0 /hpf (0-5) 10/23/18 12:21 0-4 /hpf (0-4) 10/23/18 12:21 U Hyaline Cast (Auto) 0 /lpf (0-5) 10/23/18 12:21 U Epithel Cells (Auto) 0-5 /lpf (0-5) 10/23/18 12:21 Negative (Negative) 10/23/18 12:21 Blood Type A Negative 10/23/18 12:21 Antibody Screen NEGATIVE 10/23/18 12:21
[2018-12-02] MEDS: WARFARIN SOD 6 MG TAB PO SCH (15:02)
[2018-12-02] MEDS: SENNA 8.6 MG TAB PO SCH (21:13)
[2018-12-03] MEDS: ACETAMINOPHEN 500 MG TAB PO SCH ×2 (05:51→13:19)
[2018-12-03] MEDS: OXYCODONE HCL IR 5 MG TAB (IMMEDIATE RELEASE) PO PRN ×2 (05:51→12:49)
[2018-12-03] MEDS: LEVOTHYROXINE SODIUM 100 MCG TABLET PO SCH (05:51)
[2018-12-03] MEDS: MULTIVITAMIN TAB PO SCH (07:52)
[2018-12-03] MEDS: DOCUSATE SODIUM 100 MG CAP PO SCH (07:52)
[2018-12-03] MEDS: FERROUS GLUCONATE 324 MG TAB PO SCH (07:52)
[2018-12-03] MEDS: ENOXAPARIN INJ 120 MG/0.8 ML SYR SQ SCH (07:53)
[2018-12-03] MEDS: dilTIAZem HCL 300 MG CAPCR PO SCH (07:53)
--- NOTE | 2018-12-03 09:15 | Orthopedic Progress Note ---
Date of Service December 03, 2018 Assessment & Plan (1) Tricompartment osteoarthritis of right knee: Postop day 2 status post right total knee arthroplasty. H/O hypercoaguable state on chronic Coumadin Continue PT and OT protocols. Weightbearing as tolerated. DVT prophylaxis with SCDs, ANTONIA hose, Coumadin which has been restarted, and bridging with enoxaparin. Recheck INR this morning Pain management with acetaminophen, oxycodone, hydromorphone. Discharge planning-plan for discharge to home today with home health services. Subjective Postop day 2 status post right total knee arthroplasty. Patient is sitting up in bed awake and alert. He has no complaints this morning. Denies shortness of breath, chest pain, lightheadedness. He is hoping to go home today. Pain is controlled currently. Physical Exam Physical Exam: Silverlon dressing is clean, dry, intact. There is minimal drainage in the dressing window. Calves are soft and nontender. Neurovascular is intact. Toes are mobile. Results & Data Vital Signs (Past 12 Hours) Vital Signs Temp Pulse Pulse Resp BP Pulse Ox 12/03/18 06:58 36.7 C 68 16 122/71 95 12/02/18 22:55 36.9 C 68 18 144/85 H 97
[2018-12-03 09:55] LABS: INR 1.2 (0.9-1.1); Prothrombin Time 12.6 Seconds (9.0-12.0)
--- NOTE | 2018-12-09 00:53 | Discharge Summary ---
DISCHARGE DIAGNOSIS: Degenerative joint disease, right knee. 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 CONSULTATIONS: None. COMPLICATIONS: None. PROCEDURES: Right total knee arthroplasty performed by Dr. Lopez on 12/01/2018. BRIEF HISTORY: As dictated in history and physical. HOSPITAL SUMMARY: The patient was admitted on the above-noted date and had the above-noted performed which he tolerated well. On the first postoperative day, patient was currently sitting up in his chair at the bedside. He stated that the only time he was having some pain was whenever he did a series of straight leg raises. Most of the pain is over the patella and the quadriceps tendon. He states he was able to ambulate around the hallways without difficulty. He denied shortness of breath, chest pain, or lightheadedness. Dressings were clean, dry, and intact. Calves were soft and nontender. Neurovascularly intact. Toes were mobile. Hemovac drainage was about 10 mL. He was started on PT and OT protocols, weightbearing as tolerated. DVT prophylaxis, SCDs, ANTONIA kianae. His Coumadin was restarted and he was being bridged with Lovenox per weight based scale. He was planning for home health services upon discharge and was continued on his protocol. Hemoglobin was 13.6 and INR was 1.1. By his second postoperative day, vital signs were stable, he was afebrile. He was sitting up in bed, awake and alert. He had no complaints that morning. Denied shortness of breath, chest pain or lightheadedness. He was hoping to go home that day. Pain was currently controlled at that time. Silverlon dressing was clean, dry and intact. There was minimal drainage in the dressing window. Calves were soft and nontender. Neurovascularly intact. Toes were mobile. He was continued on his PT and OT protocols and was ambulating around 400 feet. He had gone up and down 12 stairs without difficulty. Range of motion was approximately 66 degrees. INR was 1.2. He was progressing well with his physical therapy and it was felt he could be discharged to home with home health services on 12/03/2018. For further review, please see chart. LABORATORY AND X-RAY DATA: As per chart. DISCHARGE INSTRUCTIONS: The patient was discharged to home on 12/03/2018. DIET: Regular. ACTIVITY: Weightbearing as tolerated on the right lower extremity with walker. Follow [facility] instruction sheets and special care instructions as noted. Patient's instructions are also to continue Coumadin dose at home and have INR labs drawn regularly to monitor your INR. Continue Lovenox injections until your INR is therapeutic, then stop taking the Lovenox. Follow up with Dr. Lopez in 2 weeks. The patient to call for appointment if one has not made for you. DISCHARGE MEDICATIONS: Acetaminophen 1000 mg p.o. q. 8 hours, doxycycline 100 mg p.o. b.i.d., enoxaparin 120 mg subQ q. 12 hours until INR therapeutic and then discontinue, oxycodone 5-10 mg p.o. q. 6 hours, sennosides 17.2 mg p.o. at bedtime, tramadol 50-100 mg p.o. q. 4 hours p.r.n., and resume warfarin 6 mg p.o. q.p.m. as well as resume levothyroxine, diltiazem, and vitamin D3.
== END 2018-12-03 13:22 | disposition home health service (06) | DRG 470 ==
LOC: ASU 06:01 → 3E 10:16